=== PATIENT | male | born 1995 | race Caucasian/White ===

== ENCOUNTER 2024-02-03 23:28 | Inpatient (IN) | payer OTHER ==
[2024-02-04 00:42] VITALS: BMI 19.8
[2024-02-04] MEDS ORDERED: POLYETHYLENE GLYCOL (HEALTHYLAX) 3350 17 GM PACKET PO PRN (03:06)
[2024-02-04] MEDS ORDERED: MAGNESIUM HYDROX 2400MG/30ML ORAL SUSPENSION 30 ML CUP PO PRN (03:06)
[2024-02-04] MEDS ORDERED: guaiFENesin 600 MG TABLET.ER (FP) PO PRN (03:06)
[2024-02-04] MEDS ORDERED: LOPERAMIDE HCL 2 MG CAPSULE PO PRN (03:06)
[2024-02-04] MEDS ORDERED: MAG HYDROX/AL HYDROX/SIMETH 30 ML UNIT-DOSE CUP PO PRN (03:06)
[2024-02-04] MEDS ORDERED: IBUPROFEN 400 MG TABLET (FP) PO PRN (03:06)
[2024-02-04] MEDS ORDERED: DICYCLOMINE HCL 10 MG CAPSULE PO PRN (03:06)
[2024-02-04] MEDS ORDERED: ACETAMINOPHEN 325 MG TABLET (FP) PO PRN (03:06)
[2024-02-04] MEDS ORDERED: BENZONATATE 200 MG CAPSULE PO PRN (03:06)
[2024-02-04] MEDS ORDERED: BENZOCAINE/MENTHOL (CHLORASEPTIC ) LOZENGE MM PRN (03:06)
[2024-02-04] MEDS ORDERED: NALOXONE HCL 0.4 MG/ML VIAL IM PRN (03:06)
[2024-02-04] MEDS ORDERED: NALOXONE (NARCAN) HCL 4 MG/0.1 ML SPRAY NS PRN (03:06)
[2024-02-04] MEDS ORDERED: BISMUTH SUBSALICYLATE 524 MG/30 ML PO PRN (03:06)
[2024-02-04] MEDS ORDERED: ONDANSETRON *ODT* 4 MG TABLET SL PRN (03:06)
[2024-02-04] MEDS ORDERED: ALBUTEROL SO4 HFA INHALER IH PRN (03:24)
[2024-02-04] MEDS ORDERED: METHOCARBAMOL 500 MG TABLET ONE (03:26)
[2024-02-04] MEDS: hydrOXYzine PAMOATE 25 MG CAPSULE (FP) PO PRN (03:26)
[2024-02-04] MEDS ORDERED: hydrOXYzine PAMOATE 25 MG CAPSULE (FP) PO ONE (03:26)
[2024-02-04] MEDS: METHOCARBAMOL 500 MG TABLET PO PRN (03:27)
[2024-02-04] MEDS ORDERED: VARENICLINE TARTRATE 1 MG TAB PO SCH (07:30)
[2024-02-04] MEDS: PRENATAL VITAMINS W/ FOLIC ACID TABLET (FP) PO SCH (10:09)
[2024-02-04] MEDS: NICOTINE 14 MG/24 HOURS TOPICAL PATCH TD SCH (10:09)
[2024-02-04] MEDS: methaDONE HCL 10 MG TABLET PO ONE (10:09)
[2024-02-04] MEDS: cloNIDine HCL 0.1 MG TABLET PO SCH (10:34)
[2024-02-04] MEDS: diazePAM 5 MG TABLET PO SCH (13:10)
[2024-02-04] MEDS: methaDONE HCL 10 MG TABLET PO PRN (18:03)
[2024-02-04] MEDS: QUEtiapine FUMARATE 300 MG TABLET PO SCH (21:13)
[2024-02-04] MEDS: THIAMINE 100 MG TABLET PO SCH (21:13)
[2024-02-04] MEDS: MELATONIN 5 MG TABLETS PO SCH (21:53)
[2024-02-05] MEDS: NICOTINE POLACRILEX 2 MG GUM BUC PRN (05:39)
[2024-02-05] MEDS: methaDONE 40 MG, methaDONE 10 MG PO ONE (09:36)
[2024-02-05 11:46] LABS: POTASSIUM 3.8 mmol/L (3.5-5.1)
[2024-02-05 11:47] LABS: ALBUMIN 3.3 g/dl (3.4-5.0)
[2024-02-05 11:48] LABS: BLOOD UREA NITROGEN 14.5 mg/dL (7-18); CALCIUM 9.2 mg/dL (8.5-10.1)
[2024-02-05 11:52] LABS: CREATININE 0.7 mg/dL (0.55-1.3)
[2024-02-05 11:53] LABS: TOT PROT 6.7 g/dl (6.4-8.2)
[2024-02-05 11:58] LABS: HEMATOCRIT 34.7 % (35.4-49); HEMOGLOBIN 11.6 GM/dL (11.7-16.9); MCHC 33.4 g/dl (32.0-35.9); MEAN CELL VOLUME 83.9 fl (80-96); MEAN PLT VOLUME 7.7 fl (7.5-11.1); PLATELET COUNT 211 10^3/uL (134-434); RBC 4.13 M/mm3 (4.00-5.60); RDW 14.1 % (11.9-15.9); WHITE BLOOD COUNT 2.3 K/mm3 (4.0-10.0)
[2024-02-06] MEDS: methaDONE 40 MG, methaDONE 20 MG PO ONE (09:16)
[2024-02-06] MEDS: diazePAM 5 MG TABLET PO SCH (09:40)
[2024-02-06] MEDS: cloNIDine HCL 0.1 MG TABLET PO SCH (10:38)
[2024-02-06] MEDS: clonazePAM 0.5 MG ODT TABLETS SL PRN (14:29)
[2024-02-06] MEDS: cloNIDine HCL 0.1 MG TABLET PO PRN (17:34)
[2024-02-06] MEDS: hydrOXYzine PAMOATE 25 MG CAPSULE (FP) PO PRN (20:28)
[2024-02-06] MEDS: METHOCARBAMOL 500 MG TABLET PO PRN (20:28)
[2024-02-07] MEDS: methaDONE 40 MG, methaDONE 30 MG PO ONE (10:05)
[2024-02-07] MEDS: IBUPROFEN 600 MG TABLET (FP) PO PRN (19:46)
[2024-02-08] MEDS: methaDONE HCL 40 MG DISPERSABLE TABLET PO ONE (10:08)
[2024-02-09 06:28] VITALS: RESP 16
[2024-02-09] MEDS: methaDONE 80 MG, methaDONE 10 MG PO ONE (09:06)
[2024-02-09 09:32] VITALS: BP 116/66; PULSE 96; TEMP 97.5
== END 2024-02-09 10:05 | disposition home or self-care (01) | DRG 773 ==
LOC: YASAS 23:28 → Y6N 02-04 03:49
PROVIDERS: ADMIT Allergy & Immunology; ATTEND Surgery
PROC: HZ2ZZZZ Detoxification Services for Substance Abuse Treatment (ICD-10-PCS; principal; 2024-02-04)
DX: F11.23 Opioid dependence with withdrawal (principal); F10.230 Alcohol dependence with withdrawal, uncomplicated; F14.20 Cocaine dependence, uncomplicated; F12.20 Cannabis dependence, uncomplicated; F17.210 Nicotine dependence, cigarettes, uncomplicated; F19.282 Other psychoactive substance dependence with psychoactive substance-induced sleep disorder; F19.280 Other psychoactive substance dependence with psychoactive substance-induced anxiety disorder; F19.24 Other psychoactive substance dependence with psychoactive substance-induced mood disorder; F41.1 Generalized anxiety disorder; F32.A Depression, unspecified; Z86.19 Personal history of other infectious and parasitic diseases
CPT/HCPCS: 36415; 80053; 80305; 80307; 85027; 86780; 93005; 93010

== ENCOUNTER 2024-06-09 21:32 | Inpatient (IN) | payer OTHER ==
[2024-06-09 21:57] VITALS: BMI 19.0
[2024-06-09] MEDS ORDERED: TRIMETHOBENZAMIDE HCL 200MG/2ML INJ IM ONE (22:52)
[2024-06-09] MEDS ORDERED: NALOXONE (NARCAN) HCL 4 MG/0.1 ML SPRAY NS PRN (23:21)
[2024-06-09] MEDS ORDERED: BENZONATATE 200 MG CAPSULE PO PRN (23:21)
[2024-06-09] MEDS ORDERED: guaiFENesin 600 MG TABLET.ER (FP) PO PRN (23:21)
[2024-06-09] MEDS ORDERED: BISMUTH SUBSALICYLATE 524 MG/30 ML PO PRN (23:21)
[2024-06-09] MEDS ORDERED: POLYETHYLENE GLYCOL (HEALTHYLAX) 3350 17 GM PACKET PO PRN (23:21)
[2024-06-09] MEDS ORDERED: DICYCLOMINE HCL 10 MG CAPSULE PO PRN (23:21)
[2024-06-09] MEDS ORDERED: ACETAMINOPHEN 325 MG TABLET (FP) PO PRN (23:21)
[2024-06-09] MEDS ORDERED: IBUPROFEN 400 MG TABLET (FP) PO PRN (23:21)
[2024-06-09] MEDS ORDERED: BENZOCAINE/MENTHOL (CHLORASEPTIC ) LOZENGE MM PRN (23:21)
[2024-06-09] MEDS ORDERED: MAGNESIUM HYDROX 2400MG/30ML ORAL SUSPENSION 30 ML CUP PO PRN (23:21)
[2024-06-09] MEDS ORDERED: LOPERAMIDE HCL 2 MG CAPSULE PO PRN (23:21)
[2024-06-09] MEDS: TRIMETHOBENZAMIDE HCL 200MG/2ML INJ IM ONE (23:27)
[2024-06-09] MEDS ORDERED: diazePAM 5 MG TABLET ONE (23:53)
[2024-06-09] MEDS ORDERED: methaDONE HCL 10 MG TABLET (FOR DETOX USE ONLY) ONE (23:53)
[2024-06-09] MEDS: methaDONE HCL 10 MG TABLET PO ONE (23:57)
[2024-06-09] MEDS: diazePAM 5 MG TABLET PO SCH (23:57)
[2024-06-10] MEDS: ONDANSETRON *ODT* 4 MG TABLET SL PRN (05:53)
[2024-06-10] MEDS: METHOCARBAMOL 500 MG TABLET PO PRN (05:53)
[2024-06-10] MEDS ORDERED: methaDONE HCL 10 MG TABLET PO ONE (09:14)
[2024-06-10] MEDS: methaDONE 40 MG, methaDONE 20 MG PO ONE (10:17)
[2024-06-10] MEDS: NICOTINE 21 MG/24 HOURS TOPICAL PATCH TD SCH (10:18)
[2024-06-10] MEDS: IBUPROFEN 600 MG TABLET (FP) PO PRN (10:19)
[2024-06-10] MEDS: PRENATAL VITAMINS W/ FOLIC ACID TABLET (FP) PO SCH (10:20)
[2024-06-10] MEDS: diazePAM 5 MG TABLET PO PRN (14:54)
[2024-06-10] MEDS: cloNIDine HCL 0.1 MG TABLET PO PRN (17:25)
[2024-06-10] MEDS ORDERED: QUEtiapine FUMARATE 100 MG TABLET (FP) PO SCH (22:00)
[2024-06-10] MEDS: ARTIFICIAL TEARS OPHTHALMIC DROPS OU SCH (22:06)
[2024-06-10] MEDS: MELATONIN 5 MG TABLETS PO SCH (22:06)
[2024-06-10] MEDS: THIAMINE 100 MG TABLET PO SCH (22:06)
[2024-06-10] MEDS: QUEtiapine FUMARATE 300 MG TABLET PO SCH (22:07)
[2024-06-11] MEDS: diazePAM 5 MG TABLET PO SCH (05:31)
[2024-06-11] MEDS: methaDONE 40 MG, methaDONE 30 MG PO ONE (09:36)
[2024-06-11] MEDS: NICOTINE POLACRILEX 4 MG GUM BUC PRN (09:39)
[2024-06-11] MEDS ORDERED: methaDONE HCL 10 MG TABLET PO ONE (10:00)
[2024-06-11 13:45] LABS: BASO % 0.2 % (0-2.0); EOS % 2.6 % (0-4.5); HEMATOCRIT 40.7 % (35.4-49); HEMOGLOBIN 13.7 GM/dL (11.7-16.9); LYMPH % 14.8 % (8-40); MCH 27.8 pg (25.7-33.7); MCHC 33.8 g/dl (32.0-35.9); MEAN CELL VOLUME 82.3 fl (80-96); MEAN PLT VOLUME 7.8 fl (7.5-11.1); MONO % 2.2 % (3.8-10.2); NEUT % 80.2 % (42.8-82.8); PLATELET COUNT 199 10^3/uL (134-434); RBC 4.94 M/mm3 (4.00-5.60); RDW 14.2 % (11.9-15.9); WHITE BLOOD COUNT 3.3 K/mm3 (4.0-10.0)
[2024-06-11 13:57] LABS: POTASSIUM 3.1 mmol/L (3.5-5.1)
[2024-06-11 14:02] LABS: BLOOD UREA NITROGEN 11.4 mg/dL (7-18); CALCIUM 9.6 mg/dL (8.5-10.1)
[2024-06-11 14:05] LABS: CREATININE 1.2 mg/dL (0.55-1.3)
[2024-06-11 14:06] LABS: BILIRUBIN,TOTAL 1.8 mg/dL (0.2-1); TOT PROT 7.5 g/dl (6.4-8.2)
[2024-06-11] MEDS: MAG HYDROX/AL HYDROX/SIMETH 30 ML UNIT-DOSE CUP PO PRN (19:53)
[2024-06-12] MEDS: diazePAM 5 MG TABLET PO SCH (05:34)
[2024-06-12] MEDS: methaDONE HCL 40 MG DISPERSABLE TABLET PO ONE (10:06)
[2024-06-12] MEDS: hydrOXYzine PAMOATE 25 MG CAPSULE (FP) PO PRN (16:02)
[2024-06-12] MEDS: SIMETHICONE 80 MG TAB.CHEW (FP) PO PRN (17:22)
[2024-06-12] MEDS: POTASSIUM CHLORIDE ORAL LIQUID 20 MEQ/15 ML PO ONE (17:22)
[2024-06-13] MEDS: diazePAM 5 MG TABLET PO ONE ×2 (05:59→17:17)
[2024-06-13] MEDS: methaDONE 80 MG, methaDONE 10 MG PO ONE (09:57)
[2024-06-13] MEDS ORDERED: methaDONE HCL 10 MG TABLET PO ONE (10:00)
[2024-06-13] MEDS: cloNIDine HCL 0.1 MG TABLET PO PRN (15:41)
[2024-06-13] MEDS ORDERED: QUEtiapine FUMARATE 100 MG TABLET (FP) ONE (21:42)
[2024-06-14] MEDS: diazePAM 5 MG TABLET PO ONE (05:31)
[2024-06-14] MEDS ORDERED: methaDONE HCL 10 MG TABLET PO ONE (10:00)
[2024-06-14] MEDS: methaDONE 80 MG, methaDONE 20 MG PO ONE (10:14)
[2024-06-14 10:17] VITALS: BP 125/66; PULSE 88; RESP 20; TEMP 98
[2024-06-14] MEDS: NALOXONE (NYS OPIOID OVERDOSE PROGRAM) 4 MG/0.1 ML SPRAY NS SCH (10:53)
[2024-06-15] MEDS ORDERED: methaDONE HCL 10 MG TABLET PO ONE (10:00)
== END 2024-06-14 11:10 | disposition home or self-care (01) | DRG 773 ==
LOC: YASAS 21:32 → Y3N 23:27
PROVIDERS: ADMIT Allergy & Immunology; ATTEND Psychiatry & Neurology Pain Medicine
PROC: HZ2ZZZZ Detoxification Services for Substance Abuse Treatment (ICD-10-PCS; principal; 2024-06-09)
DX: F10.230 Alcohol dependence with withdrawal, uncomplicated (principal); F11.20 Opioid dependence, uncomplicated; F13.20 Sedative, hypnotic or anxiolytic dependence, uncomplicated; F14.20 Cocaine dependence, uncomplicated; F16.20 Hallucinogen dependence, uncomplicated; F12.20 Cannabis dependence, uncomplicated; F17.210 Nicotine dependence, cigarettes, uncomplicated; F19.24 Other psychoactive substance dependence with psychoactive substance-induced mood disorder; F41.0 Panic disorder [episodic paroxysmal anxiety]; F41.1 Generalized anxiety disorder; F32.9 Major depressive disorder, single episode, unspecified; F43.10 Post-traumatic stress disorder, unspecified; E87.6 Hypokalemia; Z86.19 Personal history of other infectious and parasitic diseases
CPT/HCPCS: 36415; 80053; 85025; 93005; 93010; Q0162